=== PATIENT | female | born 1965 | race Native Hawaiian/Other Pacific Islander ===

== ENCOUNTER 2016-09-10 16:38 | Emergency (ER) | payer OTHER ==
[~2016-09-10] VITALS: Ht 162.6 cm; Wt 88.0 kg
[~2016-09-10 16:38] MED LIST: ALPR0.5T24 PO; AMIT25TA22 PO; AMLO2.5T PO; BENADRYL25 M1 OR; CLARITIN10 MG PO; CLON1TAB18 PO; CYAN100010 IM; CYCL10TA35 PO; ESCI10TA PO; FLUT0.05 NAS; FURO20TA67 PO; HYDR10TA47 PO; HYDRALAZINE10 MG PO; L-ARGININE1000 MG OR; LEVO0.0529 PO; LINZESS145 MCG OR; LIPITOR20 MG PO; LORTAB 7.5-3251 TAB PO; METO50TA27 PO; METOCLOPRAM10 MG OR; PHEN200T3 PO; PRAVACHOL20 MG PO; PROVENTIL IN; SUMA100T OR; TIZA4TAB5 PO; TOPIRAMATE50 MG OR; TRAMADOL HCL100 M1 OR; ZOFRAN8 MG OR
[2016-09-10 18:56] VITALS: BP 132/80; TEMP 97.9
== END 2016-09-10 19:06 | disposition home or self-care (01) ==
LOC: ED 16:38
DX: I88.0 Nonspecific mesenteric lymphadenitis (principal)
CPT/HCPCS: 81000; 96374; 96375; 99284; J1885; J2405; J2550

== ENCOUNTER 2017-08-02 07:33 | Emergency (ER) | payer OTHER ==
[~2017-08-02] VITALS: Ht 162.6 cm; Wt 92.5 kg
[2017-08-02 07:35] VITALS: TEMP 98.3
[2017-08-02] MEDS ORDERED: HYDRALAZINE25 MG PO (08:00)
[2017-08-02] MEDS ORDERED: TOPAMAX50 MG OR (08:00)
[2017-08-02] MEDS ORDERED: DOXEPIN HCL150 MG PO (08:01)
[2017-08-02] MEDS ORDERED: POTASSIUM CHLO20 ME2 PO (08:02)
[2017-08-02] MEDS ORDERED: VENLAFAXINE75 M2 PO (08:02)
[2017-08-02] MEDS ORDERED: GABA400C2 PO (08:03)
[2017-08-02 08:48] LABS: PLATELET COUNT 234 K/uL (152-353)
[2017-08-02 08:53] LABS: POTASSIUM 3.2 mmol/L (3.6-5.2); SODIUM 138 mmol/L (136-145)
[2017-08-02 12:00] VITALS: BP 119/90
== END 2017-08-02 12:04 | disposition home or self-care (01) ==
LOC: ED 07:33
PROVIDERS: Family Medicine
DX: R06.2 Wheezing (principal); J06.9 Acute upper respiratory infection, unspecified; E03.8 Other specified hypothyroidism
CPT/HCPCS: 36415; 80053; 84443; 85027; 87804; 94664; 99283; J2920

== ENCOUNTER 2018-10-31 22:09 | Emergency (ER) | payer OTHER ==
[~2018-10-31] VITALS: Ht 165.1 cm; Wt 81.6 kg
[~2018-10-31 22:09] MED LIST changes: +DOXEPIN HCL150 MG PO; +GABA400C2 PO; +HYDRALAZINE25 MG PO; +POTASSIUM CHLO20 ME2 PO; +TOPAMAX50 MG OR; +VENLAFAXINE75 M2 PO
[2018-11-01 00:19] LABS: PLATELET COUNT 215 K/uL (152-353)
[2018-11-01 00:28] LABS: POTASSIUM 3.6 mmol/L (3.6-5.2); SODIUM 136 mmol/L (136-145)
[2018-11-01 01:20] VITALS: BP 164/80; TEMP 98.4
== END 2018-11-01 01:21 | disposition home or self-care (01) ==
LOC: ED 22:09
PROVIDERS: Internal Medicine
DX: R07.89 Other chest pain (principal); R51 Headache; I10 Essential (primary) hypertension
CPT/HCPCS: 36415; 80053; 82550; 84484; 85027; 93005; 96374; 99284; J1885; J2405

== ENCOUNTER 2019-03-08 13:06 | Outpatient (CLI) | payer OTHER ==
[2019-03-08 13:28] LABS: PLATELET COUNT 281 K/uL (152-353)
== END 2019-03-08 23:06 | disposition home or self-care (01) ==
LOC: LABW 13:06
PROVIDERS: Internal Medicine
DX: N18.3 Chronic kidney disease, stage 3 (moderate) (principal); D51.9 Vitamin B12 deficiency anemia, unspecified; E03.9 Hypothyroidism, unspecified
CPT/HCPCS: 36415; 80053; 81000; 82330; 82570; 82607; 82746; 83735; 84100; 84155; 84436; 84443; 85027; 85651; 86038

== ENCOUNTER 2019-03-20 08:40 | Outpatient (CLI) | payer OTHER | END 2019-03-20 23:41 | disposition home or self-care (01) | LOC: CT 08:40 | DX: R10.9 Unspecified abdominal pain (principal) | CPT/HCPCS: Q9963 ==

== ENCOUNTER 2019-05-31 12:16 | Outpatient (CLI) | payer OTHER ==
[2019-05-31 12:34] LABS: PLATELET COUNT 280 K/uL (152-353)
== END 2019-05-31 20:32 | disposition home or self-care (01) ==
LOC: LABW 12:16
PROVIDERS: Nurse Practitioner Family
DX: R53.83 Other fatigue (principal); Z79.899 Other long term (current) drug therapy
CPT/HCPCS: 36415; 82306; 82607; 84443; 85027

== ENCOUNTER 2019-08-31 08:55 | Outpatient (CLI) | payer OTHER ==
[2019-08-31 09:55] LABS: PLATELET COUNT 275 K/uL (152-353)
[2019-08-31 17:48] LABS: POTASSIUM 4.6 mmol/L (3.6-5.2)
== END 2019-08-31 16:00 | disposition home or self-care (01) ==
LOC: LABW 08:55
PROVIDERS: Internal Medicine
DX: N18.3 Chronic kidney disease, stage 3 (moderate) (principal); E03.8 Other specified hypothyroidism
CPT/HCPCS: 36415; 80053; 81000; 82330; 82570; 83735; 84100; 84155; 84439; 84443; 85027; 85651; 86038

== ENCOUNTER 2019-09-07 15:54 | Outpatient (CLI) | payer OTHER ==
[2019-09-07 16:13] LABS: PLATELET COUNT 272 K/uL (152-353)
[2019-09-07 16:29] LABS: POTASSIUM 4.6 mmol/L (3.6-5.2)
== END 2019-09-07 19:54 | disposition home or self-care (01) ==
LOC: LABW 15:54
PROVIDERS: Internal Medicine
DX: N18.3 Chronic kidney disease, stage 3 (moderate) (principal); E03.9 Hypothyroidism, unspecified
CPT/HCPCS: 36415; 80053; 81000; 82330; 82570; 83735; 84100; 84155; 84436; 84443; 85027; 87077; 87086; 87088; 87186

== ENCOUNTER 2019-09-17 14:52 | Outpatient (CLI) | payer OTHER ==
[2019-09-17 15:28] LABS: POTASSIUM 4.5 mmol/L (3.6-5.2)
== END 2019-09-17 19:37 | disposition home or self-care (01) ==
LOC: RAD 14:52
PROVIDERS: Internal Medicine
DX: N18.3 Chronic kidney disease, stage 3 (moderate) (principal); M85.80 Other specified disorders of bone density and structure, unspecified site
CPT/HCPCS: 36415; 80053

== ENCOUNTER 2019-11-06 07:21 | Outpatient (CLI) | payer OTHER | END 2019-11-06 19:33 | disposition home or self-care (01) | LOC: LABW 07:21 | DX: R33.9 Retention of urine, unspecified (principal) | CPT/HCPCS: 81000; 87086; 87088 ==

== ENCOUNTER 2019-12-04 10:21 | Outpatient (CLI) | payer OTHER ==
[2019-12-04 10:46] LABS: PLATELET COUNT 325 K/uL (152-353)
[2019-12-04 11:09] LABS: POTASSIUM 4.2 mmol/L (3.6-5.2)
== END 2019-12-04 22:25 | disposition home or self-care (01) ==
LOC: LABW 10:21
PROVIDERS: Internal Medicine
DX: N18.3 Chronic kidney disease, stage 3 (moderate) (principal); E03.9 Hypothyroidism, unspecified; R33.9 Retention of urine, unspecified
CPT/HCPCS: 36415; 80053; 81000; 82306; 82330; 82570; 83735; 83970; 84100; 84155; 84436; 84443; 85027; 85651; 86038; 87086; 87088

== ENCOUNTER 2020-11-10 09:02 | Outpatient (CLI) | payer OTHER | END 2020-11-10 20:44 | disposition home or self-care (01) | LOC: US 09:02 | PROVIDERS: ATTEND Internal Medicine | DX: I12.9 Hypertensive chronic kidney disease with stage 1 through stage 4 chronic kidney disease, or unspecified chronic kidney disease (principal) | CPT/HCPCS: 93975 ==

== ENCOUNTER 2020-11-10 10:05 | Emergency (ER) | payer OTHER ==
[~2020-11-10] VITALS: Ht 165.1 cm; Wt 98.4 kg
[2020-11-10 10:11] VITALS: TEMP 99.2
[2020-11-10 10:58] LABS: PLATELET COUNT 235 K/uL (152-353)
[2020-11-10 11:00] VITALS: BP 152/94
[2020-11-10 11:07] LABS: POTASSIUM 4.1 mmol/L (3.6-5.2); SODIUM 139 mmol/L (136-145)
== END 2020-11-10 12:16 | disposition home or self-care (01) ==
LOC: ED 10:05
PROVIDERS: Emergency Medicine Emergency Medical Services
DX: S22.41XA Multiple fractures of ribs, right side, initial encounter for closed fracture (principal); N39.0 Urinary tract infection, site not specified; I12.9 Hypertensive chronic kidney disease with stage 1 through stage 4 chronic kidney disease, or unspecified chronic kidney disease
CPT/HCPCS: 36415; 80053; 81000; 84484; 85027; 85379; 87086; 87088; 93005; 93975; 96360; 96375; 99284; J1885; J2405

== ENCOUNTER 2020-12-26 08:34 | Outpatient (CLI) | payer OTHER | END 2020-12-26 21:47 | disposition home or self-care (01) | LOC: MRI 08:34 | PROVIDERS: ATTEND Internal Medicine | DX: M62.830 Muscle spasm of back (principal) ==

== ENCOUNTER 2021-06-22 03:48 | Emergency (ER) | payer OTHER ==
[~2021-06-22] VITALS: Ht 165.1 cm; Wt 90.3 kg
[2021-06-22 04:00] VITALS: TEMP 99.2
[2021-06-22 04:36] LABS: PLATELET COUNT 206 K/uL (152-353)
[2021-06-22 05:10] LABS: POTASSIUM 3.8 mmol/L (3.6-5.2); SODIUM 139 mmol/L (136-145)
[2021-06-22 07:18] VITALS: BP 156/96
== END 2021-06-22 07:18 | disposition home or self-care (01) ==
LOC: ED 03:48
PROVIDERS: Hospitalist
DX: I16.0 Hypertensive urgency (principal); R07.89 Other chest pain
CPT/HCPCS: 36415; 80053; 82550; 83880; 84484; 85027; 85610; 85730; 93005; 96374; 96375; 96376; 99284; J0360; J1885; J2405